=== PATIENT | male | born 1960 | race African-American/Black ===

== ENCOUNTER → 2017-09-27 | Day surgery (SDC) | payer OTHER ==
[~2017-09-27] MED LIST: LIDOCAINE 2% PF Vial for OR 5 ML VIAL.; PROPOFOL 20 ML IV
[2017-09-27] MEDS: IV RINGERS,LACTATED 1000ML 1,000 ML IV (08:03)
== END | disposition home or self-care (01) ==
LOC: SURG 07:40
DX: K22.2 Esophageal obstruction (principal); K21.9 Gastro-esophageal reflux disease without esophagitis; E78.00 Pure hypercholesterolemia, unspecified; G47.30 Sleep apnea, unspecified; Z83.3 Family history of diabetes mellitus; Z80.0 Family history of malignant neoplasm of digestive organs; I10 Essential (primary) hypertension; Z86.010 Personal history of colon polyps; Z87.891 Personal history of nicotine dependence
CPT/HCPCS: 43235; J2704